=== PATIENT | female | born 1995 | race Caucasian/White ===

== ENCOUNTER 2018-01-16 18:33 | Emergency (ER) | payer MEDICAID, SELFPAY ==
[2018-01-16 18:37] VITALS: BP 140/79; PULSE 119; RESP 18; TEMP 36.7; O2SAT 100
--- NOTE | 2018-01-16 18:46 | DI.RAD_ITS ---
SYMPTOM/DIAGNOSIS: COUGH PA AND LATERAL CHEST: No priors. The heart is normal in size. The lungs are clear. The mediastinal structures and pleura appear intact. CONCLUSION: Normal chest.
--- NOTE | 2018-01-16 18:59 | ED.GENADUL_ITS ---
Discharge Plan Disposition Patient Disposition: HOME Condition: Good Discharge Details Chief Complaint: GenMedical Clinical Impression: URI (upper respiratory infection), Vaginal discharge ED Provider: Refugio Welch Home Meds and New Rx's Prescriptions: New diphenhydramine HCl [Benadryl] 25 MG capsule 25 mg PO Q6H Qty: 50 RF: 0 albuterol sulfate 90 mcg/actuation HFA aerosol inhaler 1 puff IH Q6H PRN (Reason: shortness of breath or wheezing) Qty: 6.7 RF: 0 azithromycin 250 mg tablet See Label Instructions .ROUTE .COMPLEX Qty: 6 RF: 0 Discharge Instructions Instructions: Upper Respiratory Infection (ED) Additional Instructions: Please take medication as directed. If you notice any worsening of your symptoms, or any new symptoms such as vomiting, diarrhea, fever, chills, shortness of breath, chest pain, numbness, weakness, or fainting , please return immediately to the emergency department for reevaluation. Please follow up with your primary care provider as soon as possible for reassessment and reevaluation. As always, it was a pleasure participating in your medical care today. Medical Decision Making This is a 23-year-old female with multiple complaints, most of which seem to stem from an upper respiratory infection with mild cough congestion mild pain in her right ear. She also has hematuria, vaginal discharge. She is on control. She denies any pelvic pain or abdominal pain. Physical exam demonstrates no crackles in her lungs, she does have mild wheeze. She does have a history of vocal cord paralysis in the past. She does not smoke. We will give1 updraftbreathing treatment, get a chest x-ray to rule out pneumonia. We will rehydrate the patient and she demonstrates dry mucous membranes and denies any significant oral intake in the last few days secondary to dizziness. We will do a vaginal exam, check for STDs. We will evaluate for potential sources of her hematuria. 8:07 PM Patient's chest x-ray shows no signs of significant pneumonia. She has requested Rocephin and azithromycin which I think is very reasonable. We are waiting gynecological path screening. Feel that the patient would benefit from Benadryl for her congestion in her right ear, as well as azithromycin for her clinical URI, questionable clinical pneumonia with her prolonged coughing and respiratory complaints. She will be given an inhaler for home use that she had notable improvement with the DuoNeb here. 8:30 PM The vaginal path screen is negative for trichomoniasis bacterial vaginosis or candidiasis. Patient is feeling much better. She will be discharged home. We discussed red flags which to return she understands. I have extensively reviewed the treatment plan and discharge instructions with the patient. I have addressed all patient concerns at this time. The patient was made aware of what symptoms to monitor for that would warrant a return to the emergency department. Discussed the plan with the patient, they demonstrate verbal understanding and agreement with our assessment and plan at this time. HPI General Date/Time Provider Initiated Documentation: 01/16/18 18:35 . HPI Narrative: This is a 23-year-old female who denies any significant past medical history who presents with multiple complaints of cough for a week and a half, congestion, right ear pain, hematuria, and vaginal discharge. She does have an intrauterine device. She denies any recent STDs or recent sexual contact. She denies any pelvic or abdominal pain, she denies any nausea vomiting or diarrhea. Regards to her hematuria she denies any significant dysuria increased urinary frequency or huong hematuria, just small amounts of blood. She denies any history of kidney stones. Regards to her congestion and cough, it is been present for the last week and a half, she has some productive yellow sputum. She does have a mild runny nose, and mild ear pain. She does admit to hearing notable changes in her hearing and hearing pops in her right ear. She denies any discharge from her ears. She denies any fever or chills. She denies any history of thyroid disease. Patient does have an intrauterine device as a baseline. She has not had a period for 2-3 years. She denies any headache or vision changes. She is a past surgical history of bilateral carpal tunnel release. She denies any tobacco use or IV illicit drug use. Denies PE risk factors such as recent long car rides, although she did have a short 2-hour flight 2 days ago, immobilization, recent surgery, prior history of DVT or PE, family history of PE or DVT, morbid obesity, exogenous estrogen and smoking, hemoptysis, history of cancer. Related Data Home Medications Medication Instructions Recorded Confirmed albuterol sulfate 1 puff IH Q6H PRN #6.7 gm 01/16/18 azithromycin See Label Instructions .ROUTE 01/16/18 .COMPLEX #6 tab diphenhydramine HCl [Benadryl] 25 mg PO Q6H #50 cap 01/16/18 Previous Rx's Medication Instructions Recorded albuterol sulfate 1 puff IH Q6H PRN #6.7 gm 01/16/18 azithromycin See Label Instructions .ROUTE 01/16/18 .COMPLEX #6 tab diphenhydramine HCl [Benadryl] 25 mg PO Q6H #50 cap 01/16/18 Allergies Allergy/AdvReac Type Severity Reaction Status Date / Time No Known Allergies Allergy Unverified 01/16/18 18:40 General Stated Complaint: GenMedical DEBRA: 3 Review of Systems Review of Systems All systems reviewed & are unremarkable except as noted in HPI and below Exam Narrative Exam Narrative: 1.Const: Well-nourished, Well-developed, appearing stated age 2.Eyes: PERRL, no conjunctival injection, and symmetrical lids. 3.ENT: Atraumatic external nose and ears. Moist MM. Neck: Symmetric, trachea midline, No thyromegaly. Patient demonstrates mild erythema in the right tympanic membrane, with clear effusion. No erythema the posterior oropharynx. Mild anterior right-sided cervical lymphadenopathy. 4.CVS: +S1/S2, No murmurs or gallops. Peripheral pulses 2+ and equal in all extremities. Brisk capillary refill in all extremities. 5.RESP: Unlabored respiratory effort. Clear to auscultation bilaterally. No rales or rhonchi, minimal wheeze. 6.GI: Soft, Nontender/Nondistended, No hepatosplenomegaly. No guarding or rebound. No pain at McBurney's point, negative Hill sign, negative CVA tenderness. 7.MSK: Normocephalic/Atraumatic, Extremities w/o deformity or ttp No cyanosis or clubbing, Normal movement of all extremities 8.Skin: Warm, Dry. No rashes or lesions. 9.Neuro: machine adjuster leader II-XII grossly intact. Sensation grossly intact, no focal neurologic deficits. 10.Psych: (AAO) x3. Appropriate mood and affect Gynecologic exam was performed with female nurse at bedside Lin. Patient demonstrates no evidence of cervical motion tenderness, no significant vaginal discharge except for a small amount of whiteness around the cervical loss. No other significant abnormalities, no signs of cervical lesions. Bimanual exam demonstrated no tenderness. Course Vital Signs Temperature 36.7 C 01/16/18 18:37 Pulse 119 H 01/16/18 18:37 Respiratory Rate 18 01/16/18 18:37 Blood Pressure 140/79 01/16/18 18:37 Pulse Oximetry 100 01/16/18 18:37 Temperature 36.7 C 01/16/18 18:37 Temperature Source Temporal Artery Scan 01/16/18 18:37 Pulse 119 H 01/16/18 18:37 Respiratory Rate 18 01/16/18 18:37 Blood Pressure 140/79 01/16/18 18:37 Blood Pressure Position Sitting 01/16/18 18:37 Pulse Oximetry 100 01/16/18 18:37 Oxygen Delivery Method Room Air 01/16/18 18:37 Oxygen Flow Rate 0 01/16/18 18:37 Pain Level 8 01/16/18 18:37
[2018-01-16] MEDS: Ketorolac 30 MG/ML VIAL 15 MG IM (19:10)
[2018-01-16] MEDS: Normal Saline 1,000 ML 1000 ML IV ×2 (19:10→20:27)
[2018-01-16] MEDS: Albuterol/Ipratropium 3 ML UPD VIAL UPD (19:12)
[2018-01-16 19:25] LABS: Bilirubin Negative (Negative); Blood Negative (Negative); Clarity Clear; Glucose Negative (Negative); Ketones Negative (Negative); Leukocyte Esterase Trace (Negative); Nitrite Negative (Negative); Urobilinogen 0.2 EU/dL (Up TO 0.2); pH 6.5 (5-8)
[2018-01-16 19:27] LABS: ALT 21 U/L (12-78); AST 15 U/L (15-37); Albumin 4.6 g/dL (3.4-5.0); Alkaline Phosphatase 84 U/L (46-116); Anion Gap 11.9 mmol/L (3-11); BUN 8 mg/dL (7-18); Bilirubin, Total 0.2 mg/dL (0.2-1.0); CO2 26.1 mmol/L (21.0-32.0); CREATININE 0.82 mg/dL (0.55-1.02); Calcium 9.5 mg/dL (8.5-10.1); Chloride 103 mmol/L (98-107); Glucose 93 mg/dL (70-100); Potassium 3.5 mmol/L (3.5-5.1); Sodium 141 mmol/L (136-145); TSH 1.82 uIU/mL (0.358-3.74); Total Protein 8.6 g/dL (6.4-8.2)
[2018-01-16 19:30] LABS: Abs Immature Grans 0.03 k/cumm (0.0-0.09); HGB 13.6 g/dL (12.0-15.5); Mean Corp. HGB Concentration 33.2 g/dL (32.0-36.0); Mean Corpuscular Hemoglobin 29.6 pg (27.0-33.0); Mean Corpuscular Volume 89.1 fL (80-95); Mean Platelet Volume 10.1 fL (8.0-11.0); Platelet Count 416 x1000/uL (130-400); RBC Distribution Width 12.5 % (11.7-14.6); White Blood Cell Count 11.09 k/cumm (4.4-10.8)
[2018-01-16 19:40] LABS: Bacteria Rare HPF (Negative); C & S Indicated? No/Sq. Contamination; Casts Negative LPF (Negative); Crystals Negative HPF (Negative); Epithelial Cells Moderate HPF (Negative); Mucus Trace (Negative); RBC 0-2 (0-2)
[2018-01-16] MEDS: cefTRIAXone 250 MG VIAL IV (19:57)
[2018-01-16] MEDS: Azithromycin 250 MG TAB 1000 MG PO (19:57)
[2018-01-16 20:15] LABS: Absolute Eosinophil Count 0.22 k/cumm (0.0-0.7); Absolute Lymphocyte Count 3.99 k/cumm (1.2-3.4); Absolute Monocyte Count 0.22 k/cumm (0.11-0.7); Absolute Neutrophil Count 6.65 k/cumm (1.2-6.7); Atypical Lymphocytes % 9; Diff Comment Manual Differential; RBC Morphology Normal
--- NOTE | 2018-01-16 20:21 | DI.VRAD_ITS ---
EXAM: XR Chest, 2 Views EXAM DATE/TIME: 01/16/2018 6:50 PM CLINICAL HISTORY: 23 years old, female; Signs and symptoms; Other: Cough x 2 weeks TECHNIQUE: XR of the chest, 2 views. COMPARISON: No relevant prior studies available. FINDINGS: Lungs: Unremarkable. No consolidation. Pleural space: Unremarkable. No pleural effusion. No pneumothorax. Heart/Mediastinum: Unremarkable. No cardiomegaly. Bones/joints: Unremarkable. IMPRESSION: No infiltrates or effusions. Dictated and Authenticated by: Daniel Curran MD. Ordering:MONA SANTANA MD
[2018-01-16 20:53] VITALS: BP 121/67; PULSE 18; RESP 16; TEMP 36.8; O2SAT 98
[2018-01-16 20:55] VITALS: RESP 16
[2018-01-20 15:16] LABS: Chlamydia Result Negative; GC Result Negative; Specimen Description CERVIX
== END 2018-01-16 20:58 | disposition home or self-care (01) ==
PROVIDERS: Emergency Provider Student in an Organized Health Care Education/Training Program
DX: J06.9 Acute upper respiratory infection, unspecified (principal); N89.8 Other specified noninflammatory disorders of vagina; R31.9 Hematuria, unspecified
CPT/HCPCS: 36415; 80053; 81025; 87491; 87591; 94640; 96361; 96372; 96374; 99284; 71046; 81003; 81015; 84443; 85025; 87480; 87510; 87660; J0696; J1885; J7620

== ENCOUNTER 2018-02-24 10:39 | Emergency (ER) | payer MEDICAID, SELFPAY ==
[2018-02-24 11:53] VITALS: PULSE 84; RESP 16; TEMP 36.4; O2SAT 100
--- NOTE | 2018-02-24 13:25 | W.ED.GENAD ---
Discharge Plan Disposition Patient Disposition: HOME Discharge Details Chief Complaint: Nausea/Vomit/Diar Clinical Impression: Viral illness, Nausea, vomiting and diarrhea, Cough Reason For Visit: fever nausa / diarrhea Primary Care Provider: None,None ED Provider: Lázaro Higuera Home Meds and New Rx's Prescriptions: Continued albuterol sulfate 90 mcg/actuation HFA aerosol inhaler 1 puff IH Q6H PRN (Reason: shortness of breath or wheezing) Qty: 6.7 RF: 0 Discontinued diphenhydramine HCl [Benadryl] 25 MG capsule 25 mg PO Q6H Qty: 50 RF: 0 Discharge Instructions Instructions: Gastroenteritis (ED), Viral Syndrome (ED) Additional Instructions: Please drink small amounts of fluid off and to stay hydrated. Please contact your primary care physician to arrange follow-up. Return to the ER for any worsening or new concerning symptoms. Discharge Data Discharge Date/Time-TO BE ENTERED AT DEPARTURE: 02/24/18 14:25 Medical Decision Making 13:58 -- 23-year-old female here with nausea, vomiting, diarrhea, subjective fever over the past day. Cough over the past few weeks that is non productive and improved from prior ED visit. Hemodynamically stable. Well-appearing. Abdomen benign. Lungs clear. Rapid flu negative. Patient given Zofran. Advised supportive care and follow-up with PCP. I encouraged to return should she have any worsening or new concerning symptoms. HPI General Mode of arrival: ambulatory. Date/Time Provider Initiated Documentation: 02/24/18 12:59. Limitations to Documentation: no limitations. Information obtained by: patient. HPI Narrative: 23-year-old female here with nausea, vomiting, diarrhea, subjective fever over the past day. Symptoms are moderate. No modifiers. Also notes cough over the past few weeks that is non productive and improved from prior ED visit. Related Data Home Medications Medication Instructions Recorded Confirmed albuterol sulfate 1 puff IH Q6H PRN #6.7 gm 01/16/18 02/24/18 Previous Rx's Medication Instructions Recorded albuterol sulfate 1 puff IH Q6H PRN #6.7 gm 01/16/18 Allergies Allergy/AdvReac Type Severity Reaction Status Date / Time No Known Allergies Allergy Unverified 02/24/18 13:30 General Stated Complaint: Nausea/Vomit/Diar DEBRA: 3 Review of Systems Constitutional Reports fever(s) Respiratory Reports cough Gastrointestinal Reports as per HPI and Denies abdominal pain PFSH Social History Smoking/Tobacco Use Status: Never Exam Const General: cooperative and no acute distress HENMT Head: normocephalic and atraumatic Mouth: moist mucous membranes Throat: posterior oropharynx normal Eyes Conjunctivae: normal conjunctivae Sclera: normal sclerae Neck Neck: trachea midline and supple Resp Auscultation: clear to auscultation bilaterally, no rales, no rhonchi and no wheezes Cardio Jugular venous pressure: no JVD Rate: regular rate and not tachycardic Rhythm: regular rhythm GI Palpation: soft, not firm, no guarding, no masses, not rigid and nontender Skin General skin exam: no rashes or lesions noted Neuro General: alert, awake and tone normal Extrem General: no edema Course Vital Signs Temperature 36.4 C L 02/24/18 11:53 Pulse 84 02/24/18 11:53 Respiratory Rate 16 02/24/18 11:53 Pulse Oximetry 100 02/24/18 11:53 Temperature 36.4 C L 02/24/18 11:53 Temperature Source Temporal Artery Scan 02/24/18 11:53 Pulse 84 02/24/18 11:53 Respiratory Rate 16 02/24/18 11:53 Blood Pressure Position Sitting 02/24/18 11:53 Pulse Oximetry 100 02/24/18 11:53 Oxygen Delivery Method Room Air 02/24/18 11:53 Oxygen Flow Rate 0 02/24/18 11:53
[2018-02-24] MEDS: Ondansetron O.D.T. 4 MG TABEF PO (13:28)
[2018-02-24 13:51] VITALS: TEMP 36.7
--- NOTE | 2018-02-24 14:01 | ED.GENADUL_ITS ---
Discharge Plan Disposition Patient Disposition: HOME Discharge Details Chief Complaint: Nausea/Vomit/Diar Clinical Impression: Viral illness, Nausea, vomiting and diarrhea, Cough Reason For Visit: fever nausa / diarrhea Primary Care Provider: None,None ED Provider: Lázaro Higuera Home Meds and New Rx's Prescriptions: Continued albuterol sulfate 90 mcg/actuation HFA aerosol inhaler 1 puff IH Q6H PRN (Reason: shortness of breath or wheezing) Qty: 6.7 RF: 0 Discontinued diphenhydramine HCl [Benadryl] 25 MG capsule 25 mg PO Q6H Qty: 50 RF: 0 Discharge Instructions Instructions: Gastroenteritis (ED), Viral Syndrome (ED) Additional Instructions: Please drink small amounts of fluid off and to stay hydrated. Please contact your primary care physician to arrange follow-up. Return to the ER for any worsening or new concerning symptoms. Discharge Data Discharge Date/Time-TO BE ENTERED AT DEPARTURE: 02/24/18 14:25 Medical Decision Making 13:58 -- 23-year-old female here with nausea, vomiting, diarrhea, subjective fever over the past day. Cough over the past few weeks that is non productive and improved from prior ED visit. Hemodynamically stable. Well-appearing. Abdomen benign. Lungs clear. Rapid flu negative. Patient given Zofran. Advised supportive care and follow-up with PCP. I encouraged to return should she have any worsening or new concerning symptoms. HPI General Mode of arrival: ambulatory . Date/Time Provider Initiated Documentation: 02/24/18 12:59 . Limitations to Documentation: no limitations . Information obtained by: patient . HPI Narrative: 23-year-old female here with nausea, vomiting, diarrhea, subjective fever over the past day. Symptoms are moderate. No modifiers. Also notes cough over the past few weeks that is non productive and improved from prior ED visit. Related Data Home Medications Medication Instructions Recorded Confirmed albuterol sulfate 1 puff IH Q6H PRN #6.7 gm 01/16/18 02/24/18 Previous Rx's Medication Instructions Recorded albuterol sulfate 1 puff IH Q6H PRN #6.7 gm 01/16/18 Allergies Allergy/AdvReac Type Severity Reaction Status Date / Time No Known Allergies Allergy Unverified 02/24/18 13:30 General Stated Complaint: Nausea/Vomit/Diar DEBRA: 3 Review of Systems Constitutional Reports fever(s) Respiratory Reports cough Gastrointestinal Reports as per HPI and Denies abdominal pain PFSH Social History Smoking/Tobacco Use Status: Never Exam Const General: cooperative and no acute distress HENMT Head: normocephalic and atraumatic Mouth: moist mucous membranes Throat: posterior oropharynx normal Eyes Conjunctivae: normal conjunctivae Sclera: normal sclerae Neck Neck: trachea midline and supple Resp Auscultation: clear to auscultation bilaterally, no rales, no rhonchi and no wheezes Cardio Jugular venous pressure: no JVD Rate: regular rate and not tachycardic Rhythm: regular rhythm GI Palpation: soft, not firm, no guarding, no masses, not rigid and nontender Skin General skin exam: no rashes or lesions noted Neuro General: alert, awake and tone normal Extrem General: no edema Course Vital Signs Temperature 36.4 C L 02/24/18 11:53 Pulse 84 02/24/18 11:53 Respiratory Rate 16 02/24/18 11:53 Pulse Oximetry 100 02/24/18 11:53 Temperature 36.4 C L 02/24/18 11:53 Temperature Source Temporal Artery Scan 02/24/18 11:53 Pulse 84 02/24/18 11:53 Respiratory Rate 16 02/24/18 11:53 Blood Pressure Position Sitting 02/24/18 11:53 Pulse Oximetry 100 02/24/18 11:53 Oxygen Delivery Method Room Air 02/24/18 11:53 Oxygen Flow Rate 0 02/24/18 11:53
[2018-02-24 14:17] VITALS: BP 113/64; PULSE 79; RESP 16; TEMP 36.7; O2SAT 100
== END 2018-02-24 14:25 | disposition home or self-care (01) ==
PROVIDERS: Emergency Provider Student in an Organized Health Care Education/Training Program
DX: B34.9 Viral infection, unspecified (principal); R11.2 Nausea with vomiting, unspecified; R19.7 Diarrhea, unspecified; R05 Cough
CPT/HCPCS: 87449; 99283

== ENCOUNTER 2018-02-24 18:50 | Emergency (ER) | payer MEDICAID, SELFPAY ==
[2018-02-24 19:03] VITALS: BP 148/84; PULSE 110; RESP 18; TEMP 36.8; O2SAT 100
--- NOTE | 2018-02-24 19:36 | DI.CT_ITS ---
SYMPTOMS/DIAGNOSIS: PAIN, TRAUMA, POSTERIOR HEAD; LEFT NECK STRANGULATION CRANIAL CT: A noncontrast cranial CT was performed. The ventricular system is normal in appearance. There is no evidence of an intracranial mass lesion. There is no evidence of a subdural or epidural hematoma. No focal areas of decreased attenuation are seen. CONCLUSION: Normal noncontrast cranial CT. CTA, NECK: CT angiography was performed with multi slice acquisition and multi planar and 3D reconstruction. CT examination of the cervical region was performed utilizing CT angiography protocol with an intravenous infusion of 85 cc of Omnipaque 350. Tracheolaryngeal structures appear intact. Lungs are clear. No evidence of carotid dissection, stenosis or aneurysm involving the internal or external carotid arteries or common carotid arteries on either side. Visualized intracranial portions of the ICAs appear intact, as do visualized portions of anterior communicating arteries, vertebral and basilar arteries and posterior cerebral arteries. No cervical mass or adenopathy seen. No hematoma identified. CONCLUSION: Negative CTA of the cervical region.
--- NOTE | 2018-02-24 19:43 | DI.RAD_ITS ---
SYMPTOMS/DIAGNOSIS: PAIN, ILIAC CREST S/P TRAUMA, THROWN AGAINST WALL RIGHT HIP AND PELVIS: Two views were obtained. Note is made of apparent contrast in the urinary bladder and an IUD in place in the pelvis midline. There is no evidence of acute fracture or dislocation.
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
[2018-02-24] MEDS: Omnipaque 350 MG/ML 100 ML BTL IJ (20:57)
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
[2018-02-24 21:06] VITALS: BP 126/79; PULSE 90; RESP 18; TEMP 37.2; O2SAT 100
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
[2018-02-24 21:37] VITALS: BP 132/74; PULSE 84; RESP 18; TEMP 37.2; O2SAT 100
== END 2018-02-24 21:52 | disposition home or self-care (01) ==
PROVIDERS: Emergency Provider Student in an Organized Health Care Education/Training Program
DX: R51 Headache (principal); M54.2 Cervicalgia; M25.551 Pain in right hip; R10.2 Pelvic and perineal pain; Y04.0XXA Assault by unarmed brawl or fight, initial encounter
CPT/HCPCS: 70498; 99285; 70450; 73502; 99284; J3490

== ENCOUNTER 2018-06-02 14:36 | Outpatient (REF) | payer MEDICAID, SELFPAY | END 2018-06-02 14:56 | LOC: NCHCN 14:36 | PROVIDERS: PCP Nurse Practitioner; Visit Provider Nurse Practitioner | DX: Z30.09 Encounter for other general counseling and advice on contraception (principal); Z11.3 Encounter for screening for infections with a predominantly sexual mode of transmission | CPT/HCPCS: 87480; 87510; 87660 ==

== ENCOUNTER 2018-06-18 15:07 | Outpatient (REF) | payer MEDICAID, SELFPAY ==
[2018-06-19 15:23] LABS: Chlamydia Result Negative; GC Result Negative; Specimen Description CERVIX
== END 2018-06-18 15:27 ==
LOC: LBN 15:07
PROVIDERS: PCP Nurse Practitioner; Visit Provider Nurse Practitioner Women's Health
DX: Z11.3 Encounter for screening for infections with a predominantly sexual mode of transmission (principal)
CPT/HCPCS: 87491; 87591

== ENCOUNTER 2018-09-01 00:30 | Outpatient (CLI) | payer MEDICAID, SELFPAY ==
--- NOTE | 2018-09-01 14:12 | DI.US_ITS ---
SYMPTOM/DIAGNOSIS: AUB IUD SURVEILLANCE. ABNL UTERINE BLEEDING 93.9 Z30.431 PELVIC ULTRASOUND: Transabdominal and transvaginal exams were performed. The uterus measures 6.5 x 3.1 x 4.7 cm. The IUD is positioned abnormally inferiorly in the cervix and lower uterine segment. The endometrial stripe measures 2 mm in thickness. No fibroids are seen. The ovaries are unremarkable. There is no evidence of free fluid or hydronephrosis. IMPRESSION: IUD positioned within the cervix and lower uterine segment.
== END 2018-09-01 00:50 ==
PROVIDERS: PCP Nurse Practitioner; Visit Provider Nurse Practitioner Women's Health
DX: N93.9 Abnormal uterine and vaginal bleeding, unspecified (principal); Z30.431 Encounter for routine checking of intrauterine contraceptive device
CPT/HCPCS: 76830; 76856

== ENCOUNTER 2018-09-09 19:03 | Outpatient (REF) | payer BC, MEDICAID, SELFPAY ==
[2018-09-09 19:18] LABS: TSH (W/Ref FT4) 1.64 uIU/mL (0.358-3.74)
== END 2018-09-09 19:23 ==
LOC: NCHCN 19:03
PROVIDERS: PCP Nurse Practitioner; Visit Provider Internal Medicine Gastroenterology
DX: G56.03 Carpal tunnel syndrome, bilateral upper limbs (principal); Z83.49 Family history of other endocrine, nutritional and metabolic diseases
CPT/HCPCS: 84443

== ENCOUNTER 2018-10-16 20:25 | Outpatient (REF) | payer MEDICAID, SELFPAY ==
[2018-10-20 14:51] LABS: Chlamydia Result Negative; GC Result Negative
== END 2018-10-16 20:45 ==
LOC: LBN 20:25
PROVIDERS: Visit Provider Nurse Practitioner Women's Health
DX: Z11.3 Encounter for screening for infections with a predominantly sexual mode of transmission (principal)
CPT/HCPCS: 87491; 87591

== ENCOUNTER 2018-11-07 14:31 | Outpatient (CLI) | payer MEDICAID, SELFPAY ==
[2018-11-07 15:03] LABS: Bilirubin Negative (Negative); Blood Negative (Negative); Clarity Clear (Clear); Glucose 100 mg/dL (Negative); Ketones 40 mg/dL (Negative); Leukocyte Esterase Negative (Negative); Nitrite Positive (Negative); pH 7.5 (5-8)
[2018-11-07 15:20] LABS: RBC 0-2 (0-2)
[2018-11-07 15:21] LABS: Bacteria Few HPF (Negative); Crystals Negative HPF (Negative); Epithelial Cells Rare HPF (Negative); Mucus Negative (Negative)
[2018-11-07 15:22] LABS: C & S Indicated? Yes; Casts Negative LPF (Negative)
== END 2018-11-07 14:51 ==
PROVIDERS: PCP Nurse Practitioner; Visit Provider Nurse Practitioner Women's Health
DX: R30.0 Dysuria (principal)
CPT/HCPCS: 81003; 81015; 87086

== ENCOUNTER 2018-11-08 07:33 | Emergency (ER) | payer MEDICAID, SELFPAY ==
[2018-11-08 07:44] LABS: Clarity Clear (Clear)
[2018-11-08 07:45] VITALS: BP 119/66; PULSE 87; RESP 16; TEMP 36.4; O2SAT 100
--- NOTE | 2018-11-08 07:57 | W.ED.GENAD ---
Discharge Plan Disposition Patient Disposition: HOME Condition: Improving Discharge Details Chief Complaint: Urinary Clinical Impression: UTI (urinary tract infection) Primary Care Provider: Karina Carrasquillo ED Provider: Mumtaz Falcon Home Meds and New Rx's Prescriptions: New ciprofloxacin HCl [Cipro] 500 mg tablet 500 mg PO BID Qty: 14 RF: 0 Continued norethindrone-e.estradiol-iron [June FE 03/23 (28)] 1 mg-20 mcg (21)/75 mg (7) tablet 1 tab PO DAILY Qty: 84 RF: 5 phenazopyridine [Pyridium] 100 mg tablet 100 mg PO TID PRN (Reason: pain) Qty: 6 RF: 0 albuterol sulfate 90 mcg/actuation HFA aerosol inhaler 1 puff IH Q6H PRN (Reason: shortness of breath or wheezing) Qty: 6.7 RF: 0 Discontinued nitrofurantoin monohyd/m-cryst [Macrobid] 100 mg capsule 100 mg PO BID 5 Days Qty: 10 RF: 0 Discharge Instructions Instructions: Urinary Tract Infection in Women (ED) Additional Instructions: Home to rest. Small, frequent sips of fluids. Tylenol if needed for aches or pains. Stop the nitrofurantoin and begin ciprofloxacin as prescribed. Return or see regular doctor if you develop joint or tendon pain. Return for any acute concerns. Medical Decision Making 23-year-old female presents with dysuria over days time, on Macrobid. Vital signs are unremarkable. Yesterday's urine consistent with UTI. Today's occluded by Pyridium. Consistent with worsening UTI, will start on ciprofloxacin. Discussed with mother and patient home management as well as follow-up/return precautions. HPI General Mode of arrival: ambulatory. Date/Time Provider Initiated Documentation: 11/08/18 07:37. Limitations to Documentation: no limitations. Information obtained by: patient. History of Present Illness 23 year old F presents to the emergency department with the chief complaint of UTI symptoms, on Macrobid, described as moderate, Quality is described as dull and constant, and is localized to the abdomen. Patient reports no radiation. Patient started experiencing this day(s) and it has been intermittent. No relieving factors improve symptom(s), No exacerbating factors reported . Patient notes denies fever/chills. Related Data Home Medications Medication Instructions Recorded Confirmed albuterol sulfate 1 puff IH Q6H PRN #6.7 gm 01/16/18 11/08/18 norethindrone 1 mg-ethinyl 1 tab PO DAILY #84 tab 10/16/18 11/08/18 estradiol 20 mcg (21)-iron 75 mg (7) tablet phenazopyridine 100 mg tablet 100 mg PO TID PRN #6 tab 11/07/18 11/08/18 ciprofloxacin HCl [Cipro] 500 mg PO BID #14 tab 11/08/18 Previous Rx's Medication Instructions Recorded albuterol sulfate 1 puff IH Q6H PRN #6.7 gm 01/16/18 norethindrone 1 mg-ethinyl 1 tab PO DAILY #84 tab 10/16/18 estradiol 20 mcg (21)-iron 75 mg (7) tablet phenazopyridine 100 mg tablet 100 mg PO TID PRN #6 tab 11/07/18 ciprofloxacin HCl [Cipro] 500 mg PO BID #14 tab 11/08/18 Allergies Allergy/AdvReac Type Severity Reaction Status Date / Time No Known Allergies Allergy Unverified 11/08/18 07:48 General Stated Complaint: Urinary DEBRA: 4 Review of Systems Review of Systems 6 systems reviewed and otherwise negative [facility] Medical History Asthma (Chronic) Contraception (Acute) initiated 09/19, changed Oct 2018 to 03/23 for mood swings. 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 Pleasant, well groomed, interactive. HEAD: Normocephalic, atraumatic ENT: Mucous membranes moist, oropharynx unremarkable, External ear exam unremarkable EYES: PERRL, EOMI NECK: Full ROM, no POLO, no menigismus CHEST/RESP: Nontender, clear to auscultation bilateral, no wheeze/rhonchi/rales CARDIOVASCULAR: RRR, no murmur, rub rosa. 2+ Rad pulse bilateral ABDOMEN: Soft, nontender, no mass. +Bowel sounds EXT: Full ROM, no edema, no rash Neuro: Grossly normal neurologic exam, conversant, interactive. Psych: Speech fluent, thoughts congruent, affect normal Course Vital Signs Temperature 36.4 C L 11/08/18 07:45 Pulse 87 11/08/18 07:45 Respiratory Rate 16 11/08/18 07:45 Blood Pressure 119/66 11/08/18 07:45 Pulse Oximetry 100 11/08/18 07:45 Temperature 36.4 C L 11/08/18 07:45 Temperature Source Skin 11/08/18 07:45 Pulse 87 11/08/18 07:45 Respiratory Rate 16 11/08/18 07:45 Respiratory Effort Non-Labored 11/08/18 07:45 Blood Pressure 119/66 11/08/18 07:45 Blood Pressure Position Sitting 11/08/18 07:45 Pulse Oximetry 100 11/08/18 07:45 Oxygen Delivery Method Room Air 11/08/18 07:45 Oxygen Flow Rate 0 11/08/18 07:45 Pain Level 9 11/08/18 07:45
[2018-11-08] MEDS: Ciprofloxacin 500 MG TAB PO (08:13)
[2018-11-08 08:32] LABS: Bilirubin Color Interference (Negative); Glucose Color Interference mg/dL (Negative); Ketones Color Interference mg/dL (Negative); Leukocyte Esterase Color Interference (Negative); Nitrite Color Interference (Negative); Urobilinogen Color Interference EU/dL (Up TO 0.2); pH 6.5 (5-8)
[2018-11-08 08:34] LABS: Blood Color Interference (Negative)
== END 2018-11-08 08:59 | disposition home or self-care (01) ==
PROVIDERS: Emergency Provider Emergency Medicine; PCP Nurse Practitioner
DX: N39.0 Urinary tract infection, site not specified (principal)
CPT/HCPCS: 81025; 99283; 81003

== ENCOUNTER 2018-12-16 12:45 | Emergency (ER) | payer MEDICAID, SELFPAY ==
[2018-12-16 12:47] VITALS: BP 123/53; PULSE 91; RESP 14; TEMP 37.1; O2SAT 99
--- NOTE | 2018-12-16 13:09 | DI.CT_ITS ---
EXAM: CT ABDOMEN AND PELVIS W CLINICAL HISTORY: Epigastric pain and vomiting TECHNIQUE: CT examination pelvis was performed with a bolus infusion of 84 cc of Omnipaque 350. COMPARISON: CT carotid neck CTA from 02/24/2018 FINDINGS: Images obtained through the lung bases are unremarkable. There is a question of thickening of the ga stric wall, although the stomach is nondistended. Correlation requested regarding possibility of gas tritis. Endoscopic correlation could be obtained if clinically indicated. Liver, spleen, pancreas, gallbladder and bile ducts are unremarkable. Adrenals appear normal bilater ally. There are tiny bilateral nonobstructing renal calculi. No evidence of ureteral calcification or obstruction seen. No abdominal wall hernia seen. No abdominal or pelvic adenopathy seen. Abdominal aorta is of normal diameter and no major vascular abnormality is seen. There is a question of slight prominence of small bowel folds, particularly proximally, but this is a questionable findi ng. No gross small bowel wall thickening or obstruction seen. Appendix is normal. IMPRESSION: Findings raising the possibility of gastritis and/or enteritis. Please correlate clinically. No braxton dence of appendicitis or bowel obstruction.
--- NOTE | 2018-12-16 13:10 | ED.GENADUL_ITS ---
Discharge Plan Disposition Patient Disposition: HOME Condition: Improving Discharge Details Chief Complaint: Nausea/Vomit/Diar Clinical Impression: Gastritis Primary Care Provider: Karina Carrasquillo ED Provider: Mumtaz Falcon Home Meds and New Rx's Prescriptions: New omeprazole 20 mg capsule,delayed release(DR/EC) 20 mg PO DAILY Qty: 20 RF: 0 Continued norethindrone-e.estradiol-iron [03/23 (28)] 1 mg-20 mcg (21)/75 mg (7) tablet 1 tab PO DAILY Qty: 84 RF: 5 albuterol sulfate 90 mcg/actuation HFA aerosol inhaler 1 puff IH Q6H PRN (Reason: shortness of breath or wheezing) Qty: 6.7 RF: 0 Discharge Instructions Instructions: Gastritis (ED) Additional Instructions: Home to rest today. [place] diet as we discussed. Avoid fatty, fried, tomato sauce-based foods. Omeprazole daily for 2 to 3 weeks time. Sleep with head of bed elevated 2-3 pillows. No eating 2 hours prior to bedtime. Return for development of fever, recurrent vomiting, or any other acute concern. Stand Alone Forms: Work Release Medical Decision Making 23-year-old female with one day last week of vomiting, improved, now recurrent again this morning associated with mild epigastric pain. She arrives pulse 91, pressure 123/53. She is afebrile and well-appearing. Her exam does demonstrate some epigastric and right upper quadrant tenderness to palpation. Differential diagnosis includes gastritis, pancreatitis, biliary colic. IV placed, patient's pain improving, given antiemetic and fluid. Her white blood cell count is 10, hematocrit 37, platelets 370. Chemistries notable for anion gap of 12, normal LFTs with total bili of 0.4. Urinalysis with mixed cells but notable for specific gravity 1.02. CT scan obtained with gastric wall thickening. Probable gastritis. No biliary findings. She does not have a fever, do not feel that this is consistent with acute cholecystitis. She is improving with fluids and breast. I will treat her with 2 weeks of proton pump inhibitor. She understands some dietary modifications, home care, as well as return precautions. Lab Data Lab results reviewed: Yes I reviewed the patient's lab results. Labs: Laboratory Results - last 24 hr 12/16/18 12/16/1819 13:00 13:15 13:15 WBC 10.90 H RBC 4.20 Hgb 12.5 Hct 37.5 MCV 89.3 MCH 29.8 MCHC 33.3 RDW 12.6 Plt Count 370 MPV 9.1 Immature Gran % 0.1 Neutrophils % 82.4 Lymphocytes % 13.5 Monocytes % 3.1 Eosinophils % 0.4 Basophils % 0.5 Absolute Neutrophils 8.98 H Absolute Lymphocytes 1.47 Absolute Monocytes 0.34 Absolute Eosinophils 0.04 Absolute Basophils 0.05 Sodium 140 Potassium 3.4 L Chloride 105 Carbon Dioxide 22.6 Anion Gap 12.4 H BUN 9 Creatinine 0.83 Estimated GFR/1.73 m2 >= 60.00 Glucose 75 Calcium 8.9 Total Bilirubin 0.4 AST 18 ALT 16 Alkaline Phosphatase 69 Total Protein 7.4 Albumin 4.1 Lipase 72 L Urine Color Yellow Urine Clarity Clear Urine pH 8.5 H Ur Specific [place] 1.020 Urine Protein 30 H Urine Ketones 80 H Urine Blood Negative Urine Nitrite Negative Urine Bilirubin Small H Urine Urobilinogen 0.2 Ur Leukocyte Esterase Negative Urine RBC 0-2 Urine WBC 0-2 Ur Epithelial Cells Few Urine Crystals Negative Urine Bacteria Moderate Urine Casts Negative Urine Mucus Negative Ur Culture Indicated? Yes Urine Glucose Negative HPI General Mode of arrival: ambulatory . Date/Time Provider Initiated Documentation: 12/16/18 12:51 . Limitations to Documentation: no limitations . Information obtained by: patient . History of Present Illness 23 year old F presents to the emergency department with the chief complaint of Epigastric pain and vomiting, recurrent, described as mild and similar to prior episodes, and is localized to the abdomen. Patient reports no radiation. Patient started experiencing this hour(s) and it has been intermittent. No relieving factors improve symptom(s), No exacerbating factors reported . Patient notes no other symptoms.; denies fever/chills and loss of appetite. Patient did receive the following treatments prior to arrival, none Related Data Home Medications Medication Instructions Recorded Confirmed albuterol sulfate 1 puff IH Q6H PRN #6.7 gm 01/16/18 12/16/18 norethindrone 1 mg-ethinyl 1 tab PO DAILY #84 tab 10/16/18 12/16/18 estradiol 20 mcg (21)-iron 75 mg (7) tablet omeprazole 20 mg PO DAILY #20 cap 12/16/18 Previous Rx's Medication Instructions Recorded albuterol sulfate 1 puff IH Q6H PRN #6.7 gm 01/16/18 norethindrone 1 mg-ethinyl 1 tab PO DAILY #84 tab 10/16/18 estradiol 20 mcg (21)-iron 75 mg (7) tablet omeprazole 20 mg PO DAILY #20 cap 12/16/18 Allergies Allergy/AdvReac Type Severity Reaction Status Date / Time environmental AdvReac Mild runny nose Uncoded 12/16/18 12:54 / eye irritation General Stated Complaint: Nausea/Vomit/Diar DEBRA: 3 Review of Systems Review of Systems Narrative: 6 systems reviewed and otherwise negative. 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 Pleasant, well groomed, interactive. HEAD: Normocephalic, atraumatic ENT: Mucous membranes moist, oropharynx unremarkable, External ear exam unremarkable EYES: PERRL, EOMI NECK: Full ROM, no POLO, no menigismus CHEST/RESP: Nontender, clear to auscultation bilateral, no wheeze/rhonchi/rales CARDIOVASCULAR: RRR, no murmur, rub rosa. 2+ Rad pulse bilateral ABDOMEN: Soft,tender RUQ and epigastrium, no rebound or guard, no mass. +Bowel sounds EXT: Full ROM, no edema, no rash Neuro: Grossly normal neurologic exam, conversant, interactive. Psych: Speech fluent, thoughts congruent, affect normal Course Vital Signs Vital signs: Vital Signs Temperature 37.1 C 12/16/18 12:47 Pulse 91 H 12/16/18 12:47 Respiratory Rate 14 12/16/18 12:47 Blood Pressure 123/53 L 12/16/18 12:47 Pulse Oximetry 99 12/16/18 12:47 Temperature 37.1 C 12/16/18 12:47 Temperature Source Skin 12/16/18 12:47 Pulse 91 H 12/16/18 12:47 Respiratory Rate 14 12/16/18 12:47 Respiratory Effort 12/16/18 12:55 Blood Pressure 123/53 L 12/16/18 12:47 Blood Pressure Position Sitting 12/16/18 12:47 Pulse Oximetry 99 12/16/18 12:47 Oxygen Delivery Method Room Air 12/16/18 12:47 Oxygen Flow Rate 0 12/16/18 12:47 Pain Level 6 12/16/18 12:47 Comment 12/16/18 12:47
[2018-12-16 13:16] LABS: Bilirubin Small (Negative); Blood Negative (Negative); Clarity Clear (Clear); Glucose Negative (Negative); Ketones 80 mg/dL (Negative); Leukocyte Esterase Negative (Negative); Nitrite Negative (Negative); Urobilinogen 0.2 EU/dL (Up TO 0.2); pH 8.5 (5-8)
[2018-12-16 13:19] LABS: Bacteria Moderate HPF (Negative); Crystals Negative HPF (Negative); Epithelial Cells Few HPF (Negative); Mucus Negative (Negative); RBC 0-2 (0-2); WBC 0-2 HPF (0-5)
[2018-12-16 13:20] LABS: C & S Indicated? Yes; Casts Negative LPF (Negative)
[2018-12-16 13:26] LABS: Abs Immature Grans 0.01 k/cumm (0.0-0.09); Absolute Basophil Count 0.05 k/cumm (0.0-0.2); Absolute Eosinophil Count 0.04 k/cumm (0.0-0.7); Absolute Lymphocyte Count 1.47 k/cumm (1.2-3.4); Absolute Monocyte Count 0.34 k/cumm (0.11-0.7); Basophils % 0.5; Eosinophils % 0.4; HCT 37.5 % (36.0-46.0); HGB 12.5 g/dL (12.0-15.5); Immature Grans % 0.1; Lymphocytes % 13.5; Mean Corp. HGB Concentration 33.3 g/dL (32.0-36.0); Mean Corpuscular Hemoglobin 29.8 pg (27.0-33.0); Mean Corpuscular Volume 89.3 fL (80-95); Mean Platelet Volume 9.1 fL (8.0-11.0); Monocytes % 3.1; Neutrophils % 82.4; Platelet Count 370 x1000/uL (130-400); RBC Distribution Width 12.6 % (11.7-14.6)
[2018-12-16 13:27] LABS: Absolute Neutrophil Count 8.98 k/cumm (1.2-6.7)
[2018-12-16] MEDS: Ondansetron 4 MG/2 ML VIAL IVP (13:29)
[2018-12-16] MEDS: Normal Saline 1,000 ML 1000 ML IV (13:31)
[2018-12-16 13:56] LABS: ALT 16 U/L (14-59); AST 18 U/L (15-37); Albumin 4.1 g/dL (3.4-5.0); Alkaline Phosphatase 69 U/L (46-116); Anion Gap 12.4 mmol/L (3-11); BUN 9 mg/dL (7-18); Bilirubin, Total 0.4 mg/dL (0.2-1.0); CO2 22.6 mmol/L (21.0-32.0); CREATININE 0.83 mg/dL (0.55-1.02); Calcium 8.9 mg/dL (8.5-10.1); Chloride 105 mmol/L (98-107); Glucose 75 mg/dL (70-100); Lipase 72 U/L (73-393); Potassium 3.4 mmol/L (3.5-5.1); Sodium 140 mmol/L (136-145); Total Protein 7.4 g/dL (6.4-8.2)
[2018-12-16] MEDS: Omnipaque 350 MG/ML 100 ML BTL IJ (14:15)
[2018-12-16 14:45] VITALS: BP 104/54; PULSE 72; RESP 14; TEMP 37.2; O2SAT 100
[2018-12-16 15:15] VITALS: BP 104/54; PULSE 72; RESP 14; TEMP 37.2; O2SAT 100
== END 2018-12-16 15:20 | disposition home or self-care (01) ==
PROVIDERS: Emergency Provider Emergency Medicine; PCP Nurse Practitioner
DX: K29.00 Acute gastritis without bleeding (principal)
CPT/HCPCS: 36415; 80053; 83690; 96361; 96374; 99285; 74177; 81003; 81015; 85025; 87086; 99284; J2405; J3490

== ENCOUNTER 2018-12-24 12:15 | Outpatient (REF) | payer MEDICAID, SELFPAY ==
[2018-12-24 19:53] LABS: TSH (W/Ref FT4) 1.26 uIU/mL (0.36-3.74)
[2018-12-29 08:38] LABS: IgA 178 mg/dL (85-499); Interpretation SEE COMMENTS; Tissue Transglutaminase IgA <1.2 U/mL (<4.0)
== END 2018-12-24 12:35 ==
LOC: NCHCN 12:15
PROVIDERS: PCP Nurse Practitioner; Visit Provider Nurse Practitioner
DX: Z13.29 Encounter for screening for other suspected endocrine disorder (principal); Z83.49 Family history of other endocrine, nutritional and metabolic diseases; R11.2 Nausea with vomiting, unspecified
CPT/HCPCS: 82784; 83516; 84443

== ENCOUNTER 2019-01-01 11:37 | Outpatient (REF) | payer MEDICAID, SELFPAY ==
[2019-01-02 13:46] LABS: Chlamydia Result Negative; GC Result Negative; Specimen Description URINE
== END 2019-01-01 11:57 ==
LOC: LBN 11:37
PROVIDERS: PCP Nurse Practitioner; Visit Provider Nurse Practitioner Family
DX: E30.0 Delayed puberty (principal); Z11.3 Encounter for screening for infections with a predominantly sexual mode of transmission
CPT/HCPCS: 87491; 87591; 87086